=== PATIENT | female | born 1945 | race Caucasian/White ===

== ENCOUNTER 2023-03-24 07:43 | Inpatient (IN) | payer MEDICARE ==
[2023-03-24] MEDS ORDERED: Ketorolac Tromethamine 30 MG/ML VIAL ONE ×2 (08:12→17:00)
[2023-03-24 09:01] LABS: #Eosinphils 0.3 10x3/uL (0.0-0.5); #Monocytes 0.9 10x3/uL (0.0-1.1); #Neutrophils 6.3 10x3/uL (1.5-8.4); %Basophils 0.5 % (0.0-2.0); %Eosinophils 2.9 % (0.0-6.0); %Lymphocytes 15.3 % (18.0-47.0); %Monocytes 9.6 % (0.0-10.0); %Neutrophils 71.1 % (40.0-75.0); Hemoglobin 8.9 g/dL (12.0-15.5); Mean Corpuscular HGB CONC 32.8 g/dL (32.0-36.0); Mean Corpuscular Hemoglobin 31.4 pg (27.0-33.0); Mean Corpuscular Volume 95.8 fl (81.6-98.3); Mean Platelet Volume 9.1 fl (7.4-10.4); Platelet Count 314 10x3/uL (150-450); RBC Distribution Width 11.8 % (11.5-14.5); Red Blood Cell (RBC) Count 2.83 10x6/uL (3.90-5.03); White Blood Cell (WBC) Count 8.9 10x3/uL (3.5-10.5)
[2023-03-24 09:05] LABS: ALT (SGPT) 8 U/L (8-55); AST (SGOT) 17 U/L (5-34); Albumin 3.1 g/dL (3.4-4.8); Alkaline Phosphatase 98 U/L (40-110); Anion Gap 14 mmol/L (10-20); BUN (Urea Nitrogen) 7 mg/dL (9.8-20.1); Bilirubin, Total 0.3 mg/dL (0.2-1.2); Calc. Creatinine Clearance 0 mL/min (70-130); Calcium 8.3 mg/dL (7.8-10.44); Carbon Dioxide 23 mmol/L (23-31); Chloride 103 mmol/L (98-107); Estimated GFR 89; Globulin 2.3 g/dL (2.4-3.5); Glucose 91 mg/dL (83-110); Potassium 4.2 mmol/L (3.5-5.1); Protein, Total 5.4 g/dL (5.8-8.1); Sodium 136 mmol/L (136-145)
[2023-03-24 10:17] LABS: Bilirubin Neg (Negative); Blood, Urine Negative (Negative); Clarity Clear (Clear); Glucose, Urine (Dipstick) Normal (Negative); Ketone, Urine Negative (Negative); Leukocyte Negative (Negative); Nitrite Negative (Negative); Protein, Urine (Dipstick) Negative (Neg-Trace); Specific Gravity, Urine 1.015 (1.005-1.030); Urobilinogen Normal mg/dL (Less than 2)
[2023-03-24 10:30] LABS: Bacteria/HPF None Seen HPF (None Seen); CAUTI Indications for Culture Dysuria,urgency,freq; RBC/HPF 0-3 HPF (0-3); Squamous Epithelial 0-3 HPF (0-3); Urine Culture Reflex No No; WBC/HPF None Seen HPF (0-3)
[2023-03-24] MEDS ORDERED: Cefdinir 300 MG CAP PO SCH (11:00)
[2023-03-24] MEDS ORDERED: Iopamidol 370 76% 100 ML VIAL ONE (11:25)
[2023-03-24] MEDS ORDERED: hydrALAZINE 20 MG/ML VIAL SLOW IVP PRN (11:31)
[2023-03-24] MEDS ORDERED: Acetaminophen 500 MG TAB PO PRN (11:31)
[2023-03-24] MEDS ORDERED: Ondansetron ODT 4 MG TAB PO PRN (11:31)
[2023-03-24] MEDS ORDERED: HYDROcodone/Acetaminophen 5/325 mg Tablet PO PRN (11:31)
[2023-03-24] MEDS ORDERED: HYDROcodone/Acetaminophen 5/325 mg Tablet ONE (17:12)
[2023-03-24] MEDS ORDERED: cefTRIAXone (ROCEPHIN) 1 GM VIAL ONE (17:19)
[2023-03-24] MEDS ORDERED: Lidocaine 5% Patch TD SCH (21:00)
[2023-03-24] MEDS: cefTRIAXone\\ROCEPHIN 1 GM in Sodium Chloride 0.9% 100 ML IVPB SCH (21:21)
[2023-03-24] MEDS: Lidocaine 4% Patch TD SCH (21:45)
[2023-03-24] MEDS: Famotidine 20 MG TAB PO SCH (21:45)
[2023-03-24 21:50] VITALS: BMI 26.4
[2023-03-25] MEDS: Ondansetron PF 4 MG/2 ML Vial IVP PRN ×2 (02:19→07:48)
[2023-03-25 05:18] LABS: #Eosinphils 0.1 10x3/uL (0.0-0.5); #Monocytes 0.6 10x3/uL (0.0-1.1); %Basophils 0.6 % (0.0-2.0); %Eosinophils 1.9 % (0.0-6.0); %Lymphocytes 16.1 % (18.0-47.0); %Monocytes 8.9 % (0.0-10.0); %Neutrophils 71.9 % (40.0-75.0); Hemoglobin 8.8 g/dL (12.0-15.5); Mean Corpuscular HGB CONC 33.1 g/dL (32.0-36.0); Mean Corpuscular Hemoglobin 31.7 pg (27.0-33.0); Mean Corpuscular Volume 95.7 fl (81.6-98.3); Platelet Count 293 10x3/uL (150-450); RBC Distribution Width 11.5 % (11.5-14.5); Red Blood Cell (RBC) Count 2.78 10x6/uL (3.90-5.03)
[2023-03-25 05:29] LABS: Anion Gap 17 mmol/L (10-20); BUN (Urea Nitrogen) 7 mg/dL (9.8-20.1); Calc. Creatinine Clearance 81 mL/min (70-130); Calcium 8.6 mg/dL (7.8-10.44); Carbon Dioxide 22 mmol/L (23-31); Chloride 100 mmol/L (98-107); Estimated GFR 91; Glucose 97 mg/dL (83-110); Potassium 3.6 mmol/L (3.5-5.1); Sodium 135 mmol/L (136-145)
[2023-03-25] MEDS: HYDROcodone/Acetaminophen 5/325 mg Tablet PO PRN ×3 (07:48→18:40)
[2023-03-25] MEDS: Famotidine 20 MG TAB PO SCH ×2 (08:27→20:23)
[2023-03-25] MEDS: Transdermal Patch Removal TOP SCH (08:49)
[2023-03-25] MEDS: hydrOXYzine 25 MG TAB PO PRN (12:25)
[2023-03-25] MEDS ORDERED: Polyethylene Glycol 3350 17 GM Packet PO PRN (13:12)
[2023-03-25] MEDS ORDERED: Sodium Chloride 0.9% 100 ML ONE (20:19)
[2023-03-25] MEDS: Lidocaine 4% Patch TD SCH (20:23)
[2023-03-25] MEDS: cefTRIAXone\\ROCEPHIN 1 GM in Sodium Chloride 0.9% 100 ML IVPB SCH (20:23)
[2023-03-26] MEDS: HYDROcodone/Acetaminophen 5/325 mg Tablet PO PRN ×2 (06:49→13:53)
[2023-03-26] MEDS: Famotidine 20 MG TAB PO SCH (08:56)
[2023-03-26] MEDS: hydrOXYzine 25 MG TAB PO PRN (08:56)
[2023-03-26] MEDS: Transdermal Patch Removal TOP SCH (08:56)
[2023-03-26] MEDS ORDERED: Metoprolol Tartrate 50 MG TAB PO SCH (09:00)
[2023-03-26] MEDS ORDERED: Sertraline 100 MG TAB PO SCH (09:00)
[2023-03-26] MEDS ORDERED: Polyethylene Glycol 3350 17 GM Packet PO SCH (09:00)
[2023-03-26] MEDS ORDERED: Amlodipine 5 MG TAB PO SCH (09:00)
[2023-03-26] MEDS ORDERED: Levothyroxine Sodium 50 MCG TAB PO SCH (10:00)
[2023-03-26 16:05] VITALS: BP 155/74; TEMP 98.2
[2023-03-26] MEDS ORDERED: Mirtazapine 15 MG TAB PO SCH (21:00)
[2023-03-26] MEDS ORDERED: Rosuvastatin 20 MG TAB PO SCH (21:00)
[2023-03-26] MEDS ORDERED: Gabapentin 100 MG CAP PO SCH (21:00)
== END 2023-03-26 17:01 | DRG 948 ==
LOC: CSHERS 07:43 → CSHERHOLD 17:17 → CSHTELE 18:57
PROVIDERS: ADMIT Family Medicine; ATTEND Family Medicine
DX: G89.18 Other acute postprocedural pain (principal); M54.9 Dorsalgia, unspecified; R53.81 Other malaise; I10 Essential (primary) hypertension; E03.9 Hypothyroidism, unspecified; M19.90 Unspecified osteoarthritis, unspecified site; K21.9 Gastro-esophageal reflux disease without esophagitis; E78.5 Hyperlipidemia, unspecified; K44.9 Diaphragmatic hernia without obstruction or gangrene; F32.A Depression, unspecified; Z98.1 Arthrodesis status; Z88.8 Allergy status to other drugs, medicaments and biological substances; Z88.6 Allergy status to analgesic agent; Z88.2 Allergy status to sulfonamides; Z91.041 Radiographic dye allergy status; D64.9 Anemia, unspecified; Z87.440 Personal history of urinary (tract) infections
CPT/HCPCS: 36415; 71275; 80048; 80053; 81001; 83880; 84484; 85025; 87086; 93005; 94760; 96361; 96374; J0696; J1650; J1885; J2405; J3490; Q9967